=== PATIENT | male | born 1985 | race Caucasian/White ===

== ENCOUNTER 2025-01-18 03:37 | Emergency (ER) | payer BC ==
[~2025-01-18] VITALS: Ht 160 cm; Wt 56.0 kg
[2025-01-18 03:59] VITALS: O2SAT 99
[2025-01-18 07:05] LABS: CLARITY URINE CLEAR (CLEAR); COLOR URINE YELLOW (YELLOW); GLUCOSE URINE NEGATIVE (NEGATIVE); KETONES URINE NEGATIVE (NEGATIVE); LEUKOCYTE ESTERASE URINE NEGATIVE (NEGATIVE); NITRITE URINE NEGATIVE (NEGATIVE); OCCULT BLOOD URINE NEGATIVE (NEGATIVE); PROTEIN URINE NEGATIVE (NEGATIVE); SPECIFIC GRAVITY URINE 1.017 (1.005-1.030); UROBILINOGEN URINE 0.2 E.U./dL (0.2-1.0)
[2025-01-18] MEDS ORDERED: IBUP-2028 PO (07:09)
[2025-01-18] MEDS ORDERED: LEVO-65 PO (07:09)
[2025-01-18 07:27] VITALS: BP 171/95; PULSE 63; RESP 17; TEMP 36.6; O2SAT 98
== END 2025-01-18 07:29 | disposition home or self-care (01) ==
LOC: ER 03:37
DX: N45.1 Epididymitis (principal); N50.811 Right testicular pain; Z79.1 Long term (current) use of non-steroidal anti-inflammatories (NSAID)
CPT/HCPCS: 76870; 81003; 93976; 99284